=== PATIENT | female | born 1965 | race Caucasian/White ===

== ENCOUNTER → 2019-06-19 11:48 | Outpatient (CLI) | payer OTHER, SELFPAY ==
[2019-06-19 13:11] LABS: Hematocrit 38.7 % (36-46); Hemoglobin 13.4 g/dL (12.0-16.0); Mean Corpuscular HGB Conc 34.5 % (30-36); Mean Corpuscular Volume 92.7 fL (80-100); Platelet Count 238 X10^3/uL (150-400); Red Blood Cell Count 4.18 X10^6/uL (4.0-5.2); White Blood Cell Count 4.7 X10^3/uL (4.5-11.0)
[2019-06-19 13:16] LABS: Alanine Aminotransferase 36 IU/L (9-52); Albumin 4.3 g/dL (3.5-5.0); Albumin Globulin Ratio 1.5 (1.0-2.8); Alkaline Phosphatase 79 U/L (38-126); Aspartate Aminotransferase 27 IU/L (14-36); BUN Creatinine Ratio 23.3 (6-22); Bilirubin Total 0.6 mg/dL (0.2-1.3); Blood Urea Nitrogen 14 mg/dL (7-17); Calcium 9.4 mg/dL (8.4-10.2); Carbon Dioxide 27 mmol/L (22-32); Chloride 105 mmol/L (98-107); Cholesterol 186 mg/dL (140-199); Estimated Glomerular Filt Rate > 60.0 mL/min (>60); Globulin 2.8 g/dL (1.7-4.1); Glucose 140 mg/dL (70-100); HDL Cholesterol 54 mg/dL (40-60); HEMOLYSIS < 15 (0-50); LDL Cholesterol Calculated 107 mg/dL (<100); Potassium 4.3 mmol/L (3.4-5.1); Sodium 140 mmol/L (137-145); Total Protein 7.1 g/dL (6.3-8.2); Triglycerides 123 mg/dL (35-150)
[2019-06-19 13:55] LABS: Neutrophils Absolute Manual 2303 /uL (3000-5900); RBC Morphology Normal Morphology; Total Cells Counted 100
== END ==
PROVIDERS: PCP Nurse Practitioner; Visit Provider Nurse Practitioner
DX: Z00.00 Encounter for general adult medical examination without abnormal findings (principal)
CPT/HCPCS: 36415; 80053; 80061; 84443; 85025

== ENCOUNTER → 2019-07-09 09:44 | Outpatient (CLI) | payer OTHER, SELFPAY ==
--- NOTE | 2019-07-09 | DI.MG.S_ITS ---
BILATERAL DIGITAL SCREENING MAMMOGRAM 3D/2D WITH CAD WITH AUGMENTATION: 07/09/2019 CLINICAL: Routine screening. Family history of breast cancer. Comparison is made to exams dated: 07/09/2015 mammogram, 06/10/2013 mammogram, and 03/06/2011 mammogram - [facility] [place]. There are scattered fibroglandular elements in both breasts. Current study was also evaluated with a Computer Aided Detection (CAD) system. Bilateral breast implants are stable and intact. No significant masses, calcifications, or other findings are seen in either breast. There has been no significant interval change. IMPRESSION: NEGATIVE There is no mammographic evidence of malignancy. A 1 year screening mammogram is recommended. This exam was interpreted at Station ID: [id number]. NOTE: For mammograms, a report in lay terms will be sent to the patient. Approximately 15% of breast malignancies will not be visualized mammographically. In the management of a palpable breast mass, a negative mammogram must not discourage biopsy of a clinically suspicious lesion. Electronically Signed By: Brett benz/jose:07/09/2019 11:15:27 letter sent: Normal Exam ACR BI-RADS Category 1: Negative 3341F
== END ==
PROVIDERS: PCP Nurse Practitioner; Visit Provider Nurse Practitioner
DX: Z12.31 Encounter for screening mammogram for malignant neoplasm of breast (principal); Z80.3 Family history of malignant neoplasm of breast
CPT/HCPCS: 77063; 77067

== ENCOUNTER 2019-07-31 08:13 | Day surgery (SDC) | payer OTHER, SELFPAY ==
[2019-07-31 08:53] VITALS: BP 123/81; PULSE 65; RESP 15; TEMP 36.8; O2SAT 94; BMI 28.2
[2019-07-31] MEDS: SODIUM CHLORIDE 0.9% 1,000 ML 200 ML IV (09:06)
--- NOTE | 2019-07-31 09:59 | PM.HP.1 ---
History of Present Illness History of Present Illness Date Patient Seen: 07/31/19 Time Patient Seen: 09:59 Chief complaint: 12506 Narrative: 53-year-old white female patient here for her 1st screening colonoscopy she is asymptomatic. Patient History Medical History Abnormal Pap smear of cervix (Resolved) Surgical History Anesthesia (Resolved) Hx of breast implants, bilateral (Resolved ~2004) Family History (Updated 06/26/19 @ 20:20 by Catherine Cha) Mother Breast cancer Gestational diabetes History of heart disease Hypertension Grandmother Diabetes mellitus Stroke Social History household members: spouse Smoking Status: Former smoker Family & Social History Family History Mother Breast cancer Gestational diabetes History of heart disease Hypertension Grandmother Diabetes mellitus Stroke Social History: household members spouse Tobacco & Substance use: Smoking Status Former smoker Meds Home Medications and Allergies Home Medications Medication Instructions Recorded Confirmed Type cholecalciferol (vitamin D3) 2,000 2,000 unit PO DAILY 06/18/19 07/31/19 History unit capsule coenzyme Q10 100 mg capsule 100 mg PO DAILY 06/18/19 07/31/19 History aulvzvarjati-Sg-yjgn-minerals 1 tab PO DAILY tab 06/18/19 07/31/19 History omega-3 fatty acids 1,000 mg 1,000 mg PO DAILY 06/18/19 07/31/19 History capsule Estriol 1mg Vaginal Delores See Rx Instructions .ROUTE 06/29/19 06/29/19 Rx .COMPLEX #30 each varicella-zoster [id number] (PF) 50 0.5 ml IM ONCE #1 each 06/29/19 06/29/19 Rx mcg/0.5 mL IM susp, kit Allergies Allergy/AdvReac Type Severity Reaction Status Date / Time No Known Drug Allergies Allergy Verified 07/31/19 08:48 Review of Systems Review of Systems ROS Unobtainable: All systems reviewed & are unremarkable except as noted in HPI and below Exam Vital Signs (past 8 hours): - 07/31/19 08:53 Temperature 98.2 F Pulse Rate 65 Respiratory Rate 15 Blood Pressure 123/81 Pulse Oximetry 94 Oxygen Delivery Method Room Air Narrative Exam Narrative: Patient is alert and oriented with no complaints Lungs are clear with no rales or wheezes Heart regular rhythm no murmur Abdomen soft no organomegaly no tenderness Rectal will be done at colonoscopy Assessment & Plan Assessment & Plan narrative: Asymptomatic patient here for her 1st screening colonoscopy. She understands the procedure and has no unanswered questions.
[2019-07-31] MEDS: MIDAZOLAM 5 MG/5 ML VIAL IV (10:34)
[2019-07-31] MEDS: fentaNYL 250 MCG/5 ML INJ IV (10:34)
--- NOTE | 2019-07-31 10:39 | PM.OP.ENDO ---
Operative Date/Time/Diagnoses Date of procedure: 07/31/19 Time of procedure: 10:39 Pre-op diagnosis: Screening colonoscopy Post-op diagnosis: same Procedure & Clinicians Study performed: Colonoscopy was done to the hepatic flexure but due to patient discomfort and oxygen desaturation despite adequate sedation I could not visualize the ascending colon and cecum Same procedure as scheduled: No (Partial colonoscopy to the hepatic flexure was normal) Surgeon: Won Lugo Procedure Notes SCOAP/Timeout: This was done Procedure in detail: The patient was given a total of 4 mg of Versed and 250 micro g of fentanyl throughout this procedure. She was a very difficult patient for colonoscopy under sedation. She repeatedly desaturated her oxygen levels however giving more medication was required because of her extreme discomfort level. Strong recommendation is for future colonoscopy to be done with propofol and an anesthesiologist in attendance. The the patient was properly identified during surgical pause she was given graduated doses of Versed and fentanyl for a total of 4 mg of Versed and 250 of fentanyl throughout the procedure. The flexible fiberoptic colonoscope was inserted transanally to the hepatic flexure. Throughout the procedure the patient would desaturate her oxygen levels into the mid 80s to low 80 percentile. However at the same time she was complaining of inordinate amount of pain. It was difficult to give more analgesia and sedation with her oxygen levels being so low. She was of course given nasal oxygen throughout the procedure. I rotated the patient on to her back from her left side employed a stiffener applied abdominal pressure at various levels but could not advance the scope beyond the hepatic flexure to view the ascending colon and cecum. This was due to patient discomfort alternatively with oxygen desaturation. The colon was visualized to the hepatic flexure on withdrawal of the scope and there were no polyps or tumors or any abnormalities. Again future colonoscopy should be done within anesthesiologist. The portion of colon visualized was completely normal. Scope withdrawal time: 15 Sedation minutes: 35 Complications: other (Difficult to maintain satisfactory sedation and not engage in oxygen deprivation. Patient should be attended by an anesthesiologist for colonoscopy in the future.) Impression: Normal colon to the hepatic flexure Post-procedure Recommendations: Colonscopy in 5 years Disposition: PACU
[2019-07-31 10:43] VITALS: BP 120/68; PULSE 63; RESP 14; TEMP 36.5; O2SAT 99
[2019-07-31 10:48] VITALS: BP 120/72; PULSE 55; RESP 14; O2SAT 100
[2019-07-31 10:51] VITALS: BP 116/77; PULSE 54; RESP 16; O2SAT 98
[2019-07-31 10:58] VITALS: BP 119/73; PULSE 72; RESP 14; O2SAT 98
[2019-07-31 11:02] VITALS: BP 119/77; PULSE 52; RESP 16; O2SAT 99
== END 2019-07-31 11:20 | disposition home or self-care (01) ==
PROVIDERS: PCP Nurse Practitioner; Visit Provider Surgery
PROC: 0DJD8ZZ Inspection of Lower Intestinal Tract, Via Natural or Artificial Opening Endoscopic (ICD-10-PCS; CPT 45378; principal; 2019-07-31 09:45)
DX: Z12.11 Encounter for screening for malignant neoplasm of colon (principal); Z87.891 Personal history of nicotine dependence; Z53.09 Procedure and treatment not carried out because of other contraindication
CPT/HCPCS: 45378; 99152; 99153; J2250; J3010

== ENCOUNTER → 2019-10-14 07:14 | Outpatient (CLI) | payer OTHER, SELFPAY ==
--- NOTE | 2019-10-14 07:40 | DI.US.S_ITS ---
PROCEDURE: US ABDOMEN LIMITED INDICATIONS: PALPABLE LUMP RIGHT LOWER BACK TECHNIQUE: Real-time focused scanning was performed of the abdomen, with image documentation. COMPARISON: None. FINDINGS: Normal examination. No mass identified, no cyst is present. IMPRESSION: Source of reported palpable lump right lower back not found. Please note that occasionally MR scanning with contrast will detect an abnormality not visible by ultrasound producing palpable lump. Continued clinical followup and consideration of MR scanning is recommended if unusual physical examination findings persist. Dictated by: Jorge Haskins M.D. on 10/14/2019 at 11:27 Approved by: Jorge Haskins M.D. on 10/14/2019 at 11:28
== END ==
PROVIDERS: PCP Nurse Practitioner; Visit Provider Nurse Practitioner
DX: R22.2 Localized swelling, mass and lump, trunk (principal)
CPT/HCPCS: 76705

== ENCOUNTER → 2019-10-22 13:59 | Outpatient (CLI) | payer OTHER, SELFPAY ==
--- NOTE | 2019-10-22 14:00 | DI.MRI.S_ITS ---
PROCEDURE: MR ABDOMEN WO/W CON INDICATIONS: lump in right lower back TECHNIQUE: Axial 2-D FLASH in- and [id number], axial breath-hold T2 FSE, axial STIR FSE. Optional contrast may be given, followed by axial 2-D FLASH with fat saturation acquired over the lesion of concern. COMPARISON: None. FINDINGS: Image quality: Excellent. Region of interest: The right paramedian flank pain area at approximately the axial level of the iliac crest, in an area of palpable clinical concern. An MR surface marker was placed with patient assistance over the epicenter of the area of concern. Scanning then proceeded, without and with contrast. Bones: Nearby osseous structures demonstrate normal overall marrow signal. IMPRESSION: The underlying fatty soft tissues appear free of encapsulated lipoma, or a malignant appearing mass such as liposarcoma. No cyst is found, the architecture of the fatty soft tissues in this area appears normal. No underlying osseous or muscular lesion is found. Within the peritoneal space included on this study no lesion is seen. Please note that occasionally a palpable lipoma may not be detectable given by MR scanning. Regardless, no area of apparent underlying infection or neoplasm is seen. Dictated by: Jorge Haskins M.D. on 10/22/2019 at 15:43 Approved by: Jorge Haskins M.D. on 10/22/2019 at 15:47
== END ==
PROVIDERS: PCP Nurse Practitioner; Visit Provider Nurse Practitioner
DX: R22.2 Localized swelling, mass and lump, trunk (principal)
CPT/HCPCS: 74183

== ENCOUNTER → 2020-02-16 11:28 | Outpatient (CLI) | payer OTHER, SELFPAY ==
[2020-02-16 13:40] LABS: Appearance Urine UA CLEAR; Bilirubin Urine UA NEGATIVE (NEGATIVE); Color Urine UA YELLOW; Glucose Urine UA NEGATIVE (Negative); Ketones Urine UA NEGATIVE (NEGATIVE); Leukocyte Esterase Urine UA 1+ (NEGATIVE); Nitrite Urine UA POSITIVE (Negative); Occult Blood Urine UA 2+ (Negative); Protein Urine UA NEGATIVE (Negative); Urobilinogen Urine UA 0.2 E.U./dL (0.2)
[2020-02-16 13:57] LABS: Amorphous Sediment Urine 1+; Bacteria Urine Few (2-10); Culture Indicated Urine Specimen Cultured; RBC Urine 1-5/HPF (0-5/HPF); Squamous Epithelial Cell Urine 0-1 /HPF (0-5/HPF); WBC Urine 5-10/HPF (0-5/HPF); pH Urine UA 6.5 (4.5-8.0)
== END ==
PROVIDERS: Family Medicine; PCP Nurse Practitioner; Referring Provider Nurse Practitioner; Visit Provider Nurse Practitioner
DX: R30.0 Dysuria (principal)
CPT/HCPCS: 36415; 81003; 81015; 87077; 87086; 87186

== ENCOUNTER → 2021-09-18 16:20 | Outpatient (CLI) | payer OTHER, SELFPAY ==
--- NOTE | 2021-09-18 16:22 | DI.MG.S_ITS ---
BILATERAL DIGITAL SCREENING MAMMOGRAM 3D/2D WITH CAD WITH AUGMENTATION: 09/18/2021 CLINICAL: Routine screening. Family history of breast cancer. Comparison is made to exams dated: 07/09/2019 mammogram - [facility] and 07/09/2015 mammogram - [facility]. There are scattered fibroglandular elements in both breasts. Current study was also evaluated with a Computer Aided Detection (CAD) system. Bilateral breast implants are stable and intact. No significant masses, calcifications, or other findings are seen in either breast. There has been no significant interval change. IMPRESSION: NEGATIVE There is no mammographic evidence of malignancy. A 1 year screening mammogram is recommended. This exam was interpreted at Station ID: [id number]. NOTE: For mammograms, a report in lay terms will be sent to the patient. Approximately 15% of breast malignancies will not be visualized mammographically. In the management of a palpable breast mass, a negative mammogram must not discourage biopsy of a clinically suspicious lesion. Electronically Signed By: Karan birmingham/jose:09/18/2021 16:54:55 letter sent: Normal Exam ACR BI-RADS Category 1: Negative 3341F
== END ==
PROVIDERS: PCP Nurse Practitioner; Referring Provider Nurse Practitioner; Visit Provider Nurse Practitioner
DX: Z12.31 Encounter for screening mammogram for malignant neoplasm of breast (principal); Z80.3 Family history of malignant neoplasm of breast
CPT/HCPCS: 77063; 77067

== ENCOUNTER → 2022-04-09 11:17 | Outpatient (CLI) | payer OTHER, SELFPAY | PROVIDERS: PCP Nurse Practitioner; Visit Provider Nurse Practitioner Family | DX: R30.0 Dysuria (principal) | CPT/HCPCS: 87077; 87086; 87186 ==

== ENCOUNTER → 2022-08-06 10:23 | Outpatient (CLI) | payer OTHER, SELFPAY ==
[2022-08-06 11:54] LABS: Hematocrit 38.9 % (36-46); Hemoglobin 13.6 g/dL (12.0-16.0); Mean Corpuscular HGB Conc 34.9 % (30-36); Mean Corpuscular Hemoglobin 31.6 PG (26-34); Mean Corpuscular Volume 90.6 fL (80-100); Platelet Count 217 X10^3/uL (150-400); Red Blood Cell Count 4.29 X10^6/uL (4.0-5.2); Red Cell Distribution Width 12.2 % (11.6-14.8); White Blood Cell Count 5.4 X10^3/uL (4.5-11.0)
[2022-08-06 12:17] LABS: Alanine Aminotransferase 32 IU/L (<35); Albumin 4.2 g/dL (3.5-5.0); Albumin Globulin Ratio 1.3 (1.0-2.8); Alkaline Phosphatase 104 U/L (38-126); Aspartate Aminotransferase 32 IU/L (14-36); BUN Creatinine Ratio 18.3 (6-22); Bilirubin Total 0.5 mg/dL (0.2-1.3); Blood Urea Nitrogen 11 mg/dL (7-17); Calcium 8.9 mg/dL (8.4-10.2); Carbon Dioxide 28 mmol/L (22-32); Chloride 105 mmol/L (98-107); Cholesterol 208 mg/dL (140-199); Estimated Glomerular Filt Rate > 60 mL/min (>60); Globulin 3.3 g/dL (1.7-4.1); Glucose 103 mg/dL (70-100); HDL Cholesterol 60 mg/dL (40-60); HEMOLYSIS < 15 (0-50); LDL Cholesterol Calculated 123 mg/dL (<100); Potassium 4.3 mmol/L (3.4-5.1); Sodium 139 mmol/L (137-145); Total Protein 7.5 g/dL (6.3-8.2); Triglycerides 124 mg/dL (35-150)
[2022-08-06 13:50] LABS: Creatinine Urine Random 75.3 mg/dL
[2022-08-06 13:58] LABS: Free T3, Triiodothyronine Free 3.32 pg/mL (2.77-5.27); Free T4, Direct Thyroxine 1.01 ng/dL (0.78-2.19)
[2022-08-06 14:04] LABS: Microalbumin Urine Random < 0.6 mg/dL (0-1.6)
[2022-08-06 14:11] LABS: Thyroid Stimulating Hormone 2.75 uIU/mL (0.47-4.68)
[2022-08-06 15:44] LABS: Hep C Virus Ab w/Reflex Quant NEGATIVE s/c (NEGATIVE)
== END ==
PROVIDERS: PCP Nurse Practitioner; Referring Provider Nurse Practitioner; Visit Provider Nurse Practitioner
DX: Z00.00 Encounter for general adult medical examination without abnormal findings (principal); Z11.59 Encounter for screening for other viral diseases
CPT/HCPCS: 36415; 80053; 80061; 82043; 82570; 84439; 84443; 84481; 85027; 86803

== ENCOUNTER → 2022-08-07 15:29 | Outpatient (CLI) | payer OTHER, SELFPAY ==
[2022-08-08 13:56] LABS: Fecal Immunochemical Test Negative (Negative)
== END ==
PROVIDERS: PCP Nurse Practitioner; Referring Provider Nurse Practitioner; Visit Provider Nurse Practitioner
DX: Z12.11 Encounter for screening for malignant neoplasm of colon (principal); Z00.00 Encounter for general adult medical examination without abnormal findings
CPT/HCPCS: 82274

== ENCOUNTER → 2022-08-25 12:03 | Outpatient (CLI) | payer OTHER, SELFPAY | PROVIDERS: PCP Nurse Practitioner; Visit Provider Nurse Practitioner Family | DX: N39.0 Urinary tract infection, site not specified (principal); Z51.89 Encounter for other specified aftercare | CPT/HCPCS: 87070; 87086; 87205; 87252 ==

== ENCOUNTER → 2023-08-15 07:39 | Outpatient (CLI) | payer OTHER, SELFPAY ==
--- NOTE | 2023-08-15 | DI.MG.S_ITS ---
BILATERAL DIGITAL SCREENING MAMMOGRAM 3D/2D WITH CAD WITH AUGMENTATION: 08/15/2023 CLINICAL: Routine screening. Family history of breast cancer. Comparison is made to exams dated: 09/18/2021 mammogram, 07/09/2019 mammogram - [facility], 07/09/2015 mammogram, and 06/10/2013 mammogram - [facility]. There are scattered areas of fibroglandular density in both breasts (category b / 25%-50% glandular tissue). Current study was also evaluated with a Computer Aided Detection (CAD) system. Bilateral breast implants are stable and intact. No significant masses, calcifications, or other findings are seen in either breast. There has been no significant interval change. IMPRESSION: NEGATIVE There is no mammographic evidence of malignancy. A 1 year screening mammogram is recommended. Based on the Tyrer Cuzick model (a risk assessment model) the patient's lifetime risk is 13.8% and her 10 year risk is 5.4%. According to the ACR, ACS, and NCCN guidelines, an annual breast MRI exam along with mammogram is recommended if the patient's lifetime risk is 20% or greater. This exam was interpreted at Station ID: [id number]. NOTE: For mammograms, a report in lay terms will be sent to the patient. Approximately 15% of breast malignancies will not be visualized mammographically. In the management of a palpable breast mass, a negative mammogram must not discourage biopsy of a clinically suspicious lesion. Electronically Signed By: Moo rehman/jose:08/15/2023 09:34:22 letter sent: Normal Exam ACR BI-RADS Category 1: Negative 3341F
== END ==
PROVIDERS: PCP Nurse Practitioner; Referring Provider Nurse Practitioner; Visit Provider Nurse Practitioner
DX: Z12.31 Encounter for screening mammogram for malignant neoplasm of breast (principal); Z80.3 Family history of malignant neoplasm of breast
CPT/HCPCS: 77063; 77067

== ENCOUNTER → 2023-11-19 16:15 | Outpatient (CLI) | payer OTHER, SELFPAY ==
[2023-11-19 17:05] LABS: Appearance Urine UA CLEAR; Bilirubin Urine UA NEGATIVE (NEGATIVE); Color Urine UA YELLOW; Glucose Urine UA NEGATIVE (Negative); Ketones Urine UA NEGATIVE (NEGATIVE); Leukocyte Esterase Urine UA TRACE (NEGATIVE); Nitrite Urine UA NEGATIVE (Negative); Occult Blood Urine UA TRACE-INTACT (Negative); Protein Urine UA NEGATIVE (Negative); Urobilinogen Urine UA 0.2 E.U./dL (0.2)
[2023-11-19 17:17] LABS: Bacteria Urine Occasional (0-1); Culture Indicated Urine Cult Not Indicated; RBC Urine 1-5/HPF (0-5/HPF); Squamous Epithelial Cell Urine 1-5 /HPF (0-5/HPF); WBC Urine 0-1/HPF (0-5/HPF)
== END ==
PROVIDERS: PCP Nurse Practitioner; Referring Provider Nurse Practitioner; Visit Provider Nurse Practitioner
DX: N39.0 Urinary tract infection, site not specified (principal); R31.9 Hematuria, unspecified; R35.0 Frequency of micturition
CPT/HCPCS: 81001

== ENCOUNTER → 2023-12-03 14:07 | Outpatient (CLI) | payer OTHER, SELFPAY | PROVIDERS: PCP Nurse Practitioner; Visit Provider Nurse Practitioner | DX: N89.8 Other specified noninflammatory disorders of vagina (principal) | CPT/HCPCS: 87070; 87077; 87186; 87205 ==

== ENCOUNTER → 2025-09-27 16:08 | Outpatient (CLI) | payer OTHER, SELFPAY ==
--- NOTE | 2025-09-27 16:11 | DI.MG.S_ITS ---
MM screening mammo implant BI: 09/27/2025. BI-RADS: 2
== END ==
PROVIDERS: PCP Nurse Practitioner Family; Referring Provider Nurse Practitioner Family; Visit Provider Nurse Practitioner Family
DX: Z12.31 Encounter for screening mammogram for malignant neoplasm of breast (principal); Z98.82 Breast implant status; Z80.3 Family history of malignant neoplasm of breast
CPT/HCPCS: 77063; 77067

== ENCOUNTER → 2025-10-01 09:58 | Outpatient (CLI) | payer OTHER, SELFPAY ==
[2025-10-01 12:00] LABS: Cholesterol 195 mg/dL (140-199); HDL Cholesterol 60 mg/dL (40-60); Triglycerides 88 mg/dL (35-150)
== END ==
PROVIDERS: PCP Nurse Practitioner Family; Referring Provider Nurse Practitioner Family; Visit Provider Nurse Practitioner Family
DX: Z13.220 Encounter for screening for lipoid disorders (principal); Z12.11 Encounter for screening for malignant neoplasm of colon
CPT/HCPCS: 36415; 80061; 82274